=== PATIENT | male | born 1970 | race Caucasian/White ===

== ENCOUNTER 2017-04-21 19:20 | Emergency (ER) | payer SELFPAY ==
[~2017-04-21] VITALS: Ht 165.1 cm; Wt 79.5 kg
[2017-04-21] MEDS ORDERED: SODIUM CHLORIDE 0.9% 1,000 ML IV ONE ×3 (19:31→21:45)
[2017-04-21 20:31] LABS: BASOPHILS % (AUTO) 0.4 % (0.0-2.0); EOSINOPHILS % (AUTO) 0.6 % (1.0-6.0); HEMATOCRIT 40.2 % (41-53); HEMOGLOBIN 13.6 g/dL (13.5-17.5); LYMPHOCYTES # (AUTO) 1.5 K/uL (1.0-4.8); LYMPHOCYTES % (AUTO) 17.2 % (22.0-44.0); MEAN CORPUSCULAR HEMOGLOBIN 29.8 pg (26.0-34.0); MEAN CORPUSCULAR HGB CONC 33.7 G/dL (31.0-37.0); MEAN CORPUSCULAR VOLUME 88 fL (80-100); MONOCYTES # (AUTO) 0.7 K/uL (0.1-1.0); MONOCYTES % (AUTO) 7.6 % (2.0-9.0); NEUTROPHILS # (AUTO) 6.7 K/uL (1.8-7.7); NEUTROPHILS % (AUTO) 74.2 % (40.0-70.0); PLATELET COUNT (AUTO) 194 K/uL (150-450); RED BLOOD CELL COUNT(AUTO) 4.55 MIL/uL (4.50-5.90); RED CELL DISTRIBUTION WIDTH 13.8 % (11.5-14.5)
[2017-04-21 20:38] LABS: APPEARANCE,URINE CLEAR (CLEAR); GLUCOSE, URINE (UA) NEGATIVE (NEGATIVE); KETONES,URINE 40 mg/dL (NEGATIVE); LEUKOCYTE ESTERASE ,URINE NEGATIVE (NEGATIVE); OCCULT BLOOD,URINE NEGATIVE (NEGATIVE); PROTEIN,URINE NEGATIVE (NEGATIVE)
[2017-04-21 20:39] LABS: ADD UA MICROSCOPIC NO
[2017-04-21 20:40] LABS: ANION GAP 10 mmol/L (8-16); CALCIUM, TOTAL 8.4 mg/dL (8.8-10.5); CARBON DIOXIDE 26 mmol/L (22-29); CHLORIDE 102 mmol/L (98-107); CREATININE 0.91 mg/dL (0.60-1.30); GLOMERULAR FILTR. RATE CALC > 60 mL/min (>60); POTASSIUM 3.1 mmol/L (3.5-5.1); SODIUM SERUM 138 mmol/L (136-145); UREA NITROGEN, BLOOD 14 mg/dL (7-18)
[2017-04-21 20:58] LABS: B-TYPE NATRIURETIC PEPTIDE < 5 pg/mL (0-100)
[2017-04-21] MEDS ORDERED: POTASSIUM CHLORIDE 20 MEQ ER TABLET PO ONE (21:00)
[2017-04-21 21:06] LABS: ALANINE AMINOTRANSFERASE 37 U/L (12-78); ALBUMIN 4.2 g/dL (3.4-5.0); ASPARTATE AMINOTRANSFERASE 27 U/L (15-37); CREATINE KINASE MB 2.6 ng/mL (0-5); CREATINE KINASE, TOTAL 290 U/L (39-308); TOTAL PROTEIN, SERUM 7.4 g/dL (6.4-8.2)
[2017-04-21] MEDS ORDERED: LORazepam 2 MG/ML VIAL IVP ONE (23:00)
[2017-04-21 23:41] VITALS: BP 133/74
== END 2017-04-21 23:45 | disposition home or self-care (01) ==
LOC: EMS 19:23
DX: E86.0 Dehydration (principal); E87.6 Hypokalemia; F17.210 Nicotine dependence, cigarettes, uncomplicated
CPT/HCPCS: 36415; 71010; 80053; 81003; 82550; 82553; 83880; 84484; 85025; 93005; 96361; 96374; 99285; J2060; J7030